=== PATIENT | male | born 1970 | race Two or more races ===

== ENCOUNTER 2025-07-01 17:52 | Emergency (ER) | payer OTHER ==
[~2025-07-01] VITALS: Ht 182.9 cm; Wt 88.5 kg
[2025-07-01] MEDS ORDERED: SULFAMETHOXAZOLE/TRIMETHOPRIM 16 MG/ML VIAL IV SCH (19:00)
[2025-07-01 19:55] LABS: BASO % 0.6 % (0.1-1.2); EOS # 0.20 (0.04-0.54); EOS % 1.9 % (0.7-7.0); LYMPH # 2.50 (1.18-3.74); LYMPH % 24.0 % (19.3-53.1); MEAN PLATELET VOLUME 8.90 fl (9.4-12.4); MONO # 0.79 (0.24-0.82); MONO % 7.6 % (4.7-12.5); NEUT # 6.73 (1.56-6.13); NEUT % 64.7 % (34.0-71.1); RED CELL DISTRIBUTION WIDTH 13.6 % (11.6-14.4)
[2025-07-01 20:20] LABS: ALT/SGPT 17 U/L (12-78); AST/SGOT 32 U/L (15-37); BILIRUBIN TOTAL 0.38 mg/dL (0.3-1.2); BUN CREA RATIO 17 (7.0-25.0); CREATININE SERUM 1.21 mg/dL (0.70-1.30); GFR 62.49; GLOBULINA 4.0 G/DL (2.4-3.5); GLUCOSE FASTING 103 mg/dL (65-100); OSMOLALITY SERUM 286 MOSM/KG (275-295)
[2025-07-01 21:26] LABS: ERYTHROCYTE SEDIMENTATION RATE 12 mm/hr (0-20)
[2025-07-01] MEDS ORDERED: CLEOCIN HCL300 MG PO (22:56)
[2025-07-01] MEDS ORDERED: INTESTINEX680 M1 PO (22:56)
== END 2025-07-01 23:27 | disposition home or self-care (01) ==
LOC: ER 17:53
PROVIDERS: Behavior Technician
DX: L03.116 Cellulitis of left lower limb (principal); G20.A1 Parkinson's disease without dyskinesia, without mention of fluctuations